=== PATIENT | male | born 1970 | race Caucasian/White ===

== ENCOUNTER → 2017-10-25 | Outpatient (CLI) | payer MEDICARE, OTHER, MEDICAID ==
[~2017-10-25] MED LIST: CONTRAST GIVEN MC; IOHEXOL 240 MG/ML 50ML VIAL. PO; IOHEXOL 300 MG/ML 100ML VIAL. IV
== END | disposition home or self-care (01) ==
LOC: CT 12:07
DX: K56.41 Fecal impaction (principal); N20.0 Calculus of kidney; M41.85 Other forms of scoliosis, thoracolumbar region; I10 Essential (primary) hypertension
CPT/HCPCS: 74177; Q9966; Q9967

== ENCOUNTER → 2019-04-26 | Outpatient (CLI) | payer MEDICARE, OTHER ==
[2017-11-26 15:00] VITALS: BP 138/97
[~2019-04-26] MED LIST changes: +ACET325T9 PO; +BACL10TA PO; +BISA5TAB4 PO; +BUSP15TA PO; -CONTRAST GIVEN MC; +DOCU-109 PO; +FENT1PAT90 TP; +HALO1TAB PO; -IOHEXOL 240 MG/ML 50ML VIAL. PO; -IOHEXOL 300 MG/ML 100ML VIAL. IV; +MULT-697 PO; +OXYC1TAB15 PO; +PANT40GR PO; +PARO20TA3 PO; +POLY17PO29 PO; +SENN-80 PO; +SIMV10TA3 PO; +TAMS0.4C2 PO; +TRAM50TA PO
--- NOTE | 2019-04-26 16:40 | RAD ---
EXAM: CT ABDOMEN/PELVIS WITHOUT CONTRAST. HISTORY: Cystitis, urinary tract infection, renal stones. TECHNIQUE: Computed tomography of the abdomen and pelvis was performed without intravenous contrast. COMPARISON: 11/24/2017. FINDINGS: Lung windows through the visualized portions of the bases reveal bilateral atelectasis. Bone windows reveal developmentally small pelvis. Both hips are very flexed and abducted. Changes of internal fixation of a left femoral fracture are partially visualized. A thoracolumbar scoliosis appears dextroconvex in the superior thoracic region and levoconvex along the lower lumbar spine. The inferior sacral segments and coccyx are mostly absent suggesting erosion in the setting of prior osteomyelitis. No clear ulcer is seen currently. There is no surrounding collection. There are calcified granulomas in the liver and spleen. The pancreas, adrenal glands and gallbladder are unremarkable. There are no pathologically enlarged lymph nodes. The right and sigmoid colon are very distended consistent with fecal impaction the distal sigmoid measures 15.5 cm in diameter. The more proximal colon is not distended. There is no small bowel obstruction. There are large bilateral staghorn calculi. The calyces and pelves of both kidneys are completely filled with calculus. This has progressed since the prior study. Calculi currently spans approximately 8 x 5 cm on the left and 7 x 6 cm on the right. The proximal ureters are mildly dilated and there is diffuse urothelial thickening. There are no ureteral calculi more distally. The bladder also demonstrates some urothelial thickening. It is completely compressed anteriorly by the distended rectosigmoid colon. IMPRESSION: 1. Large bilateral staghorn calculi fill the calyces and renal pelves diffusely and have progressed since 2018. They measure up to 8 cm on the left and 7 cm on the right. 2. Proximal hydroureter bilaterally. A component of urinary obstruction is likely associated with compression of the bladder by very distended sigmoid colon in the setting of fecal impaction. The rectosigmoid colon is distended to 15 cm. *One or more of the following individualized dose reduction techniques were utilized for this examination: 1. Automated exposure control. 2. Adjustment of the mA and/or kV according to patient size. 3. Use of iterative reconstruction technique. Electronically signed by: Angel Nance MD (04/26/2019 4:38 PM) [facility]
== END | disposition home or self-care (01) ==
LOC: CT 09:16
PROVIDERS: ATTEND Internal Medicine
DX: N20.0 Calculus of kidney (principal); K75.3 Granulomatous hepatitis, not elsewhere classified; J98.11 Atelectasis; D73.89 Other diseases of spleen; K63.89 Other specified diseases of intestine; K56.41 Fecal impaction; N13.4 Hydroureter; Z87.442 Personal history of urinary calculi; Z87.440 Personal history of urinary (tract) infections
CPT/HCPCS: 74176